=== PATIENT | male | born 1985 | race Caucasian/White ===

== ENCOUNTER 2021-10-17 12:20 | Emergency (ER) | payer MEDICAID ==
[~2021-10-17] VITALS: Ht 180.3 cm; Wt 72.7 kg
[2021-10-17] MEDS ORDERED: NO HOME MEDS (13:31)
[2021-10-17 13:32] LABS: BASOPHILS # (AUTO) 0.1 X10'3 (0-0.2); BASOPHILS % (AUTO) 0.6 % (0-1); EOSINOPHILS # (AUTO) 0.1 X10'3 (0-0.9); EOSINOPHILS % (AUTO) 0.9 % (0-6); HEMATOCRIT 51.9 % (42.0-52.0); HEMOGLOBIN 17.5 g/dl (14.0-17.9); MEAN CORPUSCULAR HEMOGLOBIN 31.2 PG (27.0-31.0); MEAN CORPUSCULAR HGB CONC 33.7 g/dL (33.0-36.5); MEAN CORPUSCULAR VOLUME 92.5 FL (78-98); MEAN PLATELET VOLUME 8.3 FL (7.4-10.4); MONOCYTES # (AUTO) 0.6 X10'3 (0-0.9); MONOCYTES % (AUTO) 6.6 % (2-12); NEUTROPHILS % (AUTO) 50.9 % (42-75); PLATELET COUNT 264 X10'3 (140-440); RED BLOOD COUNT 5.61 X10'6 (4.70-6.10); RED CELL DISTRIBUTION WIDTH 13.4 % (11.5-14.5); WHITE BLOOD COUNT 9.9 X10'3 (4.5-11.0)
[2021-10-17 13:43] LABS: ALANINE AMINOTRANSFERASE 22 U/L (12-78); ALBUMIN 4.7 G/DL (3.4-5.0); ALBUMIN/GLOBULIN RATIO 1.4 (1.1-1.5); ALKALINE PHOSPHATASE 94 IU/L (46-116); ANION GAP 26 (8-16); BILIRUBIN,TOTAL 0.9 MG/DL (0.1-1.0); BLOOD UREA NITROGEN 23 MG/DL (7-18); BUN/CREATININE RATIO 11.7 (5.4-32.0); CALCIUM 9.7 MG/DL (8.5-10.1); CHLORIDE 99 MMOL/L (99-107); CREATININE 1.97 MG/DL (0.60-1.10); GLUCOSE 167 MG/DL (70-104); SODIUM 143 MMOL/L (135-145); TOTAL CARBON DIOXIDE 17.9 MMOL/L (24-32); TOTAL PROTEIN 8.1 G/DL (6.4-8.2); eGFR 38 ML/MIN
[2021-10-17 13:54] LABS: ASPARTATE AMINO TRANSFERASE 26 U/L (10-37); POTASSIUM 4.4 MMOL/L (3.5-5.1)
[2021-10-17 13:56] LABS: ETHANOL < 0.010 GM/DL (0.0-0.010)
--- NOTE | 2021-10-17 14:47 | NUR ---
Received pt from main ER. Pt responding to internal stimuli and states he feels scared, "well wouldn't you be if you were just taken out of your own house?" Pt c/o being hungry and was given crackers and milk.
[2021-10-17] MEDS ORDERED: LORazepam 0.5 MG tablet PO PRN (15:45)
--- NOTE | 2021-10-17 15:50 | NUR ---
Patient resting in bed, laughing and talking to himself. 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 this remote mortgage underwriter put wrist band on patient, patient is only oriented to his name, patient states his date of is his date of , patient is unable to give reliable .
--- NOTE | 2021-10-17 16:42 | NUR ---
Packet sent to [facility] with pending UA
--- NOTE | 2021-10-17 17:22 | NUR ---
Patient resting in bed, continues to laugh out loud and talk as if there is person next to him.
[2021-10-17 18:34] LABS: CLARITY,URINE CLOUDY (Clear); COLOR,URINE YELLOW (Yellow); PH,URINE 6.5 (4.8-8.0); UA COLLECTION TYPE CLN CATCH MIDSTREAM
[2021-10-17 18:35] LABS: GLUCOSE, URINE NEGATIVE (Neg); KETONES,URINE 80 mg/dl (Neg); NITRITES, URINE NEGATIVE (Neg); OCCULT BLOOD,URINE NEGATIVE (Neg); PROTEIN,URINE NEGATIVE (Neg)
[2021-10-17 18:36] LABS: LEUKOCYTE ESTERASE ,URINE NEGATIVE (Neg); UROBILINOGEN,URINE 0.2 E.U/dL (0.2-1.0)
[2021-10-17 18:42] LABS: URINE AMPHETAMINE SCREEN NEGATIVE (Neg); URINE BARBITUATE SCREEN NEGATIVE (Neg); URINE BENZODIAZEPINES SCREEN NEGATIVE (Neg); URINE CANNABINOID SCREEN NEGATIVE (Neg); URINE COCAINE SCREEN NEGATIVE (Neg); URINE METHADONE SCREEN NEGATIVE (Neg); URINE OPIATE SCREEN NEGATIVE (Neg); URINE PHENCYCLIDINE SCREEN NEGATIVE (Neg)
--- NOTE | 2021-10-17 18:42 | NUR ---
Patient is awake, mid fowlers in bed. Patient is resting quietly, he is delusional and paranoid.
[2021-10-17 18:43] LABS: AMORPHOUS URATES 3+; BACTERIA,URINE NONE SEEN /HPF (Neg); MUCUS STRANDS NONE SEEN /LPF (Neg); RBC,URINE NONE SEEN /HPF (0-2); SQUAMOUS EPITHELIAL CELL,UR FEW /LPF (FEW); WBC,URINE 0-4 /HPF (0-4)
--- NOTE | 2021-10-17 19:31 | NUR ---
Patient is laying in bed on his left side, laughing to himself.
[2021-10-17] MEDS ORDERED: traZODone 50mg tablet PO PRN (20:00)
[2021-10-17] MEDS ORDERED: risperiDONE 2mg tablet PO SCH (21:00)
--- NOTE | 2021-10-17 23:17 | NUR ---
Patient sleeps quietly on his left side. In view from the nurses station.
--- NOTE | 2021-10-18 00:26 | NUR ---
Report given to Jessi, intake nurse at [facility]. Patient is being considered for admission. His case will be presented in this am to their medical provider.
--- NOTE | 2021-10-18 01:29 | NUR ---
Patient is sleeping quietly on his right side in bed.
--- NOTE | 2021-10-18 02:35 | NUR ---
Patients sleeping quietly on his left side, low fowlers in bed. No distress.
--- NOTE | 2021-10-18 03:57 | NUR ---
Patient awoke, becoming more linear. Requested coffee, advised perhaps at breakfast. No distress.
--- NOTE | 2021-10-18 05:56 | NUR ---
Patient is sleeping in a low fowlers position. No distress.
--- NOTE | 2021-10-18 07:18 | NUR ---
Patient is laying supine in bed sleeping. Respirations are even and nonlabored.
--- NOTE | 2021-10-18 07:44 | NUR ---
Patient has been accepted at [facility]. Patient will be leaving at 09:30.
[2021-10-18 09:46] VITALS: BP 93/60
== END 2021-10-18 09:56 ==
LOC: ER 12:20 → EDBD 12:20 → ER 10-18 09:56
DX: F20.9 Schizophrenia, unspecified (principal); Z20.822 Contact with and (suspected) exposure to COVID-19; R63.4 Abnormal weight loss
CPT/HCPCS: 36415; 80053; 80305; 80320; 81001; 84443; 85025; 87635; 99285; C9803